=== PATIENT | female | born 2000 | race African-American/Black ===

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

== ENCOUNTER 2020-09-29 01:03 | Emergency (ER) | payer OTHER ==
[~2020-09-29] VITALS: Ht 165.1 cm; Wt 59.1 kg
[~2020-09-29 01:03] MED LIST: FERROUS SULFATE65 MG PO; SPRINTEC 35 MCG1 TAB PO
[2020-09-29 01:10] VITALS: TEMP 99.1
[2020-09-29 01:57] LABS: HEMOGLOBIN 10.2 g/dl (12.5-16.0); MEAN CELL VOLUME 79 fl (80.0-100.0); MEAN CORPUSCULAR HEMOGLOBIN 25 pg (27.0-31.0); MEAN CORPUSCULAR HGB CONC 31 g/dl (33.0-37.0); MEAN PLATELET VOLUME 9.9 fl (7.4-10.4); PLATELET COUNT 168 K/mm3 (130-400); RED BLOOD COUNT 4.14 M/mm3 (4.10-5.30); REDCELL DISTRIBUTION WIDTH-CV 16.5 % (11.5-14.5)
[2020-09-29 01:58] LABS: HEMATOCRIT 32.7 % (37.0-47.0)
[2020-09-29 02:09] LABS: ALBUMIN 3.6 gm/dL (3.5-5.0); BILIRUBIN,TOTAL 0.6 mg/dL (0.0-1.0); C-REACTIVE PROTEIN 1.6 mg/dL (0.0-0.9); CALCIUM 8.3 mg/dL (8.4-10.2); CREATININE, serum 0.74 (0.52-1.25); POTASSIUM 3.6 mmol/L (3.4-5.0); TOTAL PROTEIN 7.1 gm/dL (6.4-8.2)
[2020-09-29 02:12] LABS: LYMPHOCYTE 77 % (20.0-51.0); NEUTROPHILS 16 % (42.0-75.2)
[2020-09-29 02:13] LABS: ANISOCYTOSIS 1+; HYPOCHROMIA 2+; MICROCYTOSIS 1+; PLATELET ESTIMATE NORMAL (NORMAL)
[2020-09-29 02:14] LABS: SCHISTOCYTES 1+
[2020-09-29 02:22] LABS: COLLECTION METHOD CLEAN CATCH
[2020-09-29 02:27] LABS: PH 7 (5-8); SQUAMOUS EPITHELIAL 0-2 /hpf; URINE APPEARANCE Clear; URINE BACTERIA Rare /hpf; URINE BILIRUBIN Negative (NEGATIVE); URINE BLOOD Negative (NEGATIVE); URINE COLOR Yellow; URINE GLUCOSE Negative (NEGATIVE); URINE KETONE Negative (NEGATIVE); URINE LEUKOCYTE ESTERASE Negative (NEGATIVE); URINE NITRATE Negative (NEGATIVE); URINE PROTEIN(semi-quant) Negative (NEGATIVE); URINE RBC 0-2 /hpf; URINE UROBILINOGEN Negative (NEGATIVE)
[2020-09-29] MEDS ORDERED: DOXYCYCLINE 10100 MG PO (03:04)
[2020-09-29 03:06] VITALS: BP 125/72; PULSE 83
== END 2020-09-29 03:26 | disposition home or self-care (01) ==
LOC: COL.ER 01:03
PROVIDERS: Emergency Medicine
DX: L04.3 Acute lymphadenitis of lower limb (principal); Z32.02 Encounter for pregnancy test, result negative
CPT/HCPCS: J0696; J1885